=== PATIENT | male | born 1950 | race Caucasian/White ===

== ENCOUNTER → 2023-04-19 10:14 | Outpatient (REF) | payer MEDICARE, SELFPAY ==
[2023-04-19 10:41] LABS: % Basophils 0.6 % (0-2); % Eosinophils 3.9 % (0-6); % Immature Granulocytes 0.4 % (0-0.5); % Lymphocytes 19.7 % (20.5-51.1); % Monocytes 9.8 % (1.7-9.3); % Neutrophils 65.6 % (42.2-75.2); Absolute Eosinophils 0.3 10^3/uL (0-0.7); Absolute Lymphocytes 1.4 10^3/uL (1.2-3.4); Absolute Monocytes 0.7 10^3/uL (0.1-0.6); Absolute Neutrophils 4.7 10^3/uL (1.4-6.5); Hematocrit 47.3 % (39.0-52.0); Hemoglobin 16.4 g/dL (13.0-18.0); Mean Corp Hgb Conc. 34.7 g/dL (33.0-37.0); Mean Corpuscular Hgb 33.7 pg (27.0-31.0); Mean Corpuscular Volume 97.3 fL (80.0-94.0); Mean Platelet Volume 9.6 fL (7.4-10.4); Nucleated Red Blood Cells % 0 % (-); Platelet Count 183 10^3/uL (130-400); Red Blood Cell Count 4.86 10^6/uL (4.70-6.10); Red Cell Dist. Width 12.2 % (11.5-14.5); White Blood Cell Count 7.2 10^3/uL (4.8-10.8)
[2023-04-19 11:09] LABS: Blood Urea Nitrogen 27 mg/dl (9-20); Calcium 9.1 mg/dl (8.4-10.2); Carbon Dioxide 31 mmol/L (22-30); Chloride 104 mmol/L (98-107); Glucose 86 mg/dl (70-99); Potassium 4.3 mmol/L (3.5-5.1); Sodium 140 mmol/L (135-145); eGFR > 60.00
== END ==
LOC: REG 10:14
PROVIDERS: ATTENDING PHYSICIAN Specialist
DX: Z01.818 Encounter for other preprocedural examination (principal)
CPT/HCPCS: 36415; 80048; 85025

== ENCOUNTER 2023-05-16 16:20 | Emergency (ER) | payer MEDICARE, SELFPAY ==
[2023-05-16 16:30] VITALS: BP 159/108
--- NOTE | 2023-05-16 16:52 | ED.GENMED ---
History of Present Illness
General
Chief Complaint: Urinary Symptoms
Source: patient
Exam Limitations: none
Time Seen by Provider: 05/16/23 16:45
Nursing documentation reviewed up to this point in time: agreed with
Travel History
Have you had any contact with someone who has COVID-19?: No
Do you have any symptoms of coronavirus? Fever > 100 degrees, chills, cough, shortness of breath, sore throat, loss of taste or smell, muscle aches, or headache?: No
History of Present Illness
History of Present Illness:
Patient to ED for urinary retention, He had left TKR here today. He states he was catheterized prior to discharge for 700cc. TOld to go to ED if he does not void in 8 hours. States he is unable to pass urine, complains of feeling full. Brought
to ED by spouse for eval. Follows with Dr. Montesinos. Has history of BPH
Past History
Past History
ED Past Medical History: Arrthythmia, HTN and Other (BPH)
ED Past Surgical History: Orthopedic (LTKR )
Review of Systems
Review of Systems
Allergies reviewed?: Yes
All Other Systems: ROS reviewed and negative except as documented in HPI and ROS
Constitutional: Reports no symptoms
EENT: Reports no symptoms
Respiratory: Reports no symptoms
Cardiac: Reports no symptoms
ABD/GI: Reports no symptoms
: Reports difficulty voiding
Musculoskeletal: Reports other (left TKR today. Bandage is dry and intact.)
Skin: Reports no symptoms
Neurological: Reports no symptoms
Psychiatric: Reports no symptoms
Phy Exam
General Physical Exam
General Presentation: well appearing and mild distress
General age: appears stated age
General Skin: warm and dry
General Habitus: normal
General Mental: alert
Gastrointestinal Exam
Gastrointestinal Exam: normal bowel sounds and non tender
Musculoskeletal Exam
Musculoskeletal Exam: neuro vasc intact and other (Left knee surgical dressing dry and intact. Compression stocking on)
Skin Exam
Skin Exam: normal color, warm/dry and no rash
Psychiatric Exam
Psychiatric Exam: normal mood/affect
Course
Orders/Labs/Results
Orders:
Orders
05/16/23 17:05
Urinalysis Reflex To Culture Urgent
Date Specimen was Collected: 05/16/23
Time Specimen was Collected: 17:02
Urine Microscopic Reflex Cult Urgent
Urine Culture Urgent
DENNIS Source: U
Specimen Description:
Date Specimen was Collected: 05/16/23
Time Specimen was Collected: 17:02
Abnormal Lab Results
05/16/23
17:05
Urine Ketones Trace A
(Negative)
Ur Occult Blood Reflex 4+ A
(Negative)
Urine Nitrite (Reflex) Positive A
(Negative)
Leukocyte Esterase Rfl Trace A
(Negative)
Urine RBC >100 A /HPF
(0-2)
Urine Albumin (Reflex) 2+ A
(Neg - Trace)
Vital Signs
Initial and Last Documented VS:
Initial Vital Signs
Temp Pulse Resp BP Pulse Ox
97.9 F 71 17 159/108 98
05/16/23 16:30 05/16/23 16:30 05/16/23 16:30 05/16/23 16:30 05/16/23 16:30
Last Documented Vital Signs
Temp Pulse Resp BP Pulse Ox
97.9 F 71 17 159/108 98
05/16/23 16:30 05/16/23 16:30 05/16/23 16:30 05/16/23 16:30 05/16/23 16:30
*Critical Care Note
Total Time (30-74mins, 75-104mins- exclusive of procedures): Not Applicable
Update Note
Update Note:
Patient to ED for urinary retention s/p LTKR. Bladder scan in ED >500cc. Catheter placed by RN, draining bloody urine, no clots. Patient is now comfortabe. He is discharged home, will follow up with urology this week. Given instructions on s/s
to return to ED and he is agreeable to plan.
ED Attending Note
-
Portions of this chart may have been created with voice recognition software.� Occasional wrong word or��sound alike� substitutions may have occurred due to the inherent limitations of voice recognition software.
Discharge Plan
Departure
Patient Disposition: Home (Routine Discharge)
Date of Disposition: 05/16/23
Time of Disposition: 17:47
Patient with high blood pressure during this ER visit?: No
Condition: Good
Covid-19: Not Applicable
Discharge Problem:
Acute urinary retention
Instructions: How to Care for Your [place] Catheter, Male, Blood in the Urine (Hematuria), Adult (DC), Urinary Retention
Referrals:
Justin Montesinos MD [Active] - Call in 1-3 days for appt
Yenny Maldonado MD [Family Provider] -
Interventions
Interventions:
ED-Male Genitourinary Assessment Last Done: 05/16/23 17:21
[2023-05-16 17:16] LABS: Urine Albumin 2+ (Neg - Trace); Urine Bilirubin Negative (Negative); Urine Character Slightly Cloudy (Clear); Urine Color Brown; Urine Glucose Negative (Negative); Urine Ketone Trace (Negative); Urine Leukocyte Trace (Negative); Urine Nitrite Positive (Negative); Urine Occult Blood 4+ (Negative); Urine Specific Gravity 1.015 (<1.030); Urine Urobilinogen Negative (Neg - 1+)
[2023-05-16 17:21] LABS: Urine Squamous Cell 0-2 /LPF (Few)
[2023-05-16 17:22] LABS: Urine Red Blood Cell >100 /HPF (0-2); Urine White Cell 0-2 /HPF (0-5)
[2023-05-16 18:14] VITALS: BP 141/72
== END 2023-05-16 18:15 | disposition home or self-care (01) ==
LOC: EMR 16:20
PROVIDERS: Nurse Practitioner; EMERGENCY PHYSICIAN Emergency Medicine; FAMILY PHYSICIAN Family Medicine
DX: N40.1 Benign prostatic hyperplasia with lower urinary tract symptoms (principal); R33.8 Other retention of urine; I10 Essential (primary) hypertension; Z96.652 Presence of left artificial knee joint
CPT/HCPCS: 99282; 81003; 81015; 87086

== ENCOUNTER → 2024-07-04 10:14 | Outpatient (REF) | payer MEDICARE, SELFPAY | LOC: RAD 10:14 | PROVIDERS: ATTENDING PHYSICIAN Student in an Organized Health Care Education/Training Program; FAMILY PHYSICIAN Family Medicine | DX: M79.641 Pain in right hand (principal); M79.642 Pain in left hand; R79.82 Elevated C-reactive protein (CRP); M79.89 Other specified soft tissue disorders | CPT/HCPCS: 73120 ==